=== PATIENT | female | born 1955 | race Two or more races ===

== ENCOUNTER 2022-05-08 04:04 | Emergency (ER) | payer OTHER ==
[~2022-05-08] VITALS: Ht 157.5 cm; Wt 70.3 kg
[2022-05-08] MEDS ORDERED: LOSARTAN-HCTZ1 EAC2 (04:15)
[2022-05-08] MEDS ORDERED: CATAPRES0.3 MG (04:16)
== END 2022-05-08 13:11 | disposition home or self-care (01) ==
LOC: ER 04:04
DX: U07.1 COVID-19 (principal); R51.9 Headache, unspecified; R42 Dizziness and giddiness; E87.1 Hypo-osmolality and hyponatremia; I10 Essential (primary) hypertension; Z88.0 Allergy status to penicillin